=== PATIENT | female | born 1965 | race American Indian/Alaskan Native ===

== ENCOUNTER 2019-02-10 13:59 | Emergency (ER) | payer OTHER ==
[2019-02-10 14:15] VITALS: BP 151/74
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
== END 2019-02-10 18:59 | disposition home or self-care (01) ==
LOC: ED 13:59
DX: M25.532 Pain in left wrist (principal); M25.522 Pain in left elbow; I10 Essential (primary) hypertension; E78.00 Pure hypercholesterolemia, unspecified; V87.7XXA Person injured in collision between other specified motor vehicles (traffic), initial encounter; Y93.89 Activity, other specified; Y92.488 Other paved roadways as the place of occurrence of the external cause; Y99.8 Other external cause status
CPT/HCPCS: 99283